=== PATIENT | female | born 1980 | race Caucasian/White ===

== ENCOUNTER 2016-09-06 15:14 | Emergency (ER) | payer MEDICAID ==
[~2016-09-06] VITALS: Ht 160 cm; Wt 65.8 kg
[2016-09-06 15:39] VITALS: BP 119/78
--- NOTE | 2016-09-06 19:12 | NUR ---
PATIENT LEFT WITHOUT BEING SEEN BY DR. SNOW. NO FURTHER CARE PROVIDED FOR PATIENT.
== END 2016-09-06 19:12 | disposition left against medical advice (07) ==
LOC: MED 15:14
DX: R51 Headache (principal); Z53.21 Procedure and treatment not carried out due to patient leaving prior to being seen by health care provider

== ENCOUNTER 2016-09-16 11:36 | Emergency (ER) | payer OTHER ==
[~2016-09-16] VITALS: Ht 160 cm; Wt 65.8 kg
[2016-09-16 11:52] VITALS: BP 115/68
--- NOTE | 2016-09-16 14:36 | NUR ---
Pt w/c assisted to bed 3.
[2016-09-16] MEDS ORDERED: NACL 0.9% 1,000 ML IV ONE (14:55)
[2016-09-16] MEDS ORDERED: ONDANSETRON 4 MG/2 ML VIAL IVP ONE (14:55)
[2016-09-16] MEDS ORDERED: KETOROLAC 30 MG/ML VIAL IVP ONE (14:55)
--- NOTE | 2016-09-16 14:58 | NUR ---
Patient being evaluated by physician at bedside.
--- NOTE | 2016-09-16 15:00 | NUR ---
PATIENT PRESENTS TO ED WITH FRONTAL LOBE HEADACHE SINCE 4AM . PT STATES .SKIN IS PINK/WARM/DRY; AAOX4 WITH EVEN AND STEADY GAIT; LUNGS CLEAR BL; HR EVEN AND REGULAR; PT DENIES ANY FEVER, CP, SOB, OR COUGH AT THIS TIME; PATIENT STATES PAIN OF 9/10 AT THIS TIME; VSS; PATIENT POSITIONED FOR COMFORT; HOB ELEVATED; BEDRAILS UP X2; BED DOWN. ER MD MADE AWARE OF PT STATUS.
[2016-09-16] MEDS ORDERED: diphenhydrAMINE 50 MG/ML VIAL IVP ONE (15:05)
[2016-09-16] MEDS ORDERED: PROCHLORPERAZINE 10 MG/2 ML VIAL IVP ONE (15:05)
[2016-09-16 15:23] LABS: BASOPHILS # (AUTO) 0.2 K/uL (0.00-0.22); EOSINOPHILS # (AUTO) 0.1 K/uL (0-0.4); EOSINOPHILS % (AUTO) 1.8 % (0.0-4.0); HEMATOCRIT 34.7 % (36-48); HEMOGLOBIN 10.8 g/dL (12.0-16.0); LYMPHOCYTES # (AUTO) 1.1 K/uL (2.5-16.5); LYMPHOCYTES % (AUTO) 18.6 % (20.5-51.1); MEAN CORPUSCULAR HEMOGLOBIN 23 pg (27-31); MEAN CORPUSCULAR HGB CONC 31 g/dL (33-37); MEAN CORPUSCULAR VOLUME 73 fL (80-94); MONOCYTES # (AUTO) 0.3 K/uL (0.8-1.0); MONOCYTES % (AUTO) 4.9 % (1.7-9.3); NEUTROPHILS # (AUTO) 4.5 K/uL (1.8-7.7); PLATELET COUNT (AUTO) 201 K/uL (140-450); RED BLOOD CELL COUNT(AUTO) 4.76 MIL/uL (4.20-5.40); RED CELL DISTRIBUTION WIDTH 16.8 % (11.6-13.7); WHITE BLOOD COUNT (AUTO) 6.2 K/uL (4.8-10.8)
[2016-09-16 15:32] LABS: ANION GAP 11.7 (8-16); CALCIUM 8.3 mg/dL (8.5-10.1); CREATININE 0.6 mg/dL (0.6-1.3); POTASSIUM 3.7 mmol/L (3.5-5.1)
[2016-09-16 15:38] LABS: ALBUMIN 3.6 g/dL (3.4-5.0); TOTAL BILIRUBIN 0.9 mg/dL (0.0-1.0)
[2016-09-16 16:21] VITALS: BP 122/77
--- NOTE | 2016-09-16 16:21 | NUR ---
Patient discharged with v/s stable. Written and verbal after care instructions given and explained. Patient alert, oriented and verbalized understanding of instructions. Ambulatory with steady gait. All questions addressed prior to discharge. ID band removed. Patient advised to follow up with PMD. Rx of COMPAZINE/BENADRYL given. Patient educated on indication of medication including possible reaction and side effects. Opportunity to ask questions provided and answered.
== END 2016-09-16 16:21 | disposition home or self-care (01) ==
LOC: MED 11:36
DX: G43.909 Migraine, unspecified, not intractable, without status migrainosus (principal); Z88.6 Allergy status to analgesic agent
CPT/HCPCS: 36415; 80053; 81025; 85025; 96361; 96374; 96375; 99284; J0780; J1200; J1885; J2405; J7030; 81002

== ENCOUNTER 2017-09-07 22:10 | Emergency (ER) | payer OTHER ==
[~2017-09-07] VITALS: Ht 160 cm; Wt 70.3 kg
[2017-09-07 22:16] VITALS: BP 129/89
--- NOTE | 2017-09-07 22:22 | NUR ---
EKG NSR, PT SENT TO LOBBY AWATING ROOM PLACEMENT.
--- NOTE | 2017-09-07 23:40 | NUR ---
PATIENT LEFT WITHOUT BEING SEEN BY DR. Lange. NO FURTHER CARE PROVIDED FOR PATIENT.
== END 2017-09-07 23:40 | disposition left against medical advice (07) ==
LOC: MED 22:10
DX: R07.89 Other chest pain (principal); Z53.21 Procedure and treatment not carried out due to patient leaving prior to being seen by health care provider; Z88.8 Allergy status to other drugs, medicaments and biological substances
CPT/HCPCS: 93005; 99281; 99283; 99284

== ENCOUNTER 2018-02-03 12:49 | Inpatient (IN) | payer OTHER ==
[~2018-02-03] VITALS: Ht 160 cm; Wt 70.3 kg
--- NOTE | 2018-02-03 | NUR ---
RECEIVED REPORT FROM DAY SHIFT RN, FOR CONTINUITY OF CARE.PT IS A/OX4, ON ROOM AIR AND PRIMARILY USES BRUNEIAN. PT IS ABLE TO MAKE NEEDS KNOWN, ABLE TO FOLLOW COMMANDS. PT BREATHS EQUAL AND UNLABORED. PT IS ABLE TO AMBULATE WITH STEADY GAIT AND SKIN IS INTACT. PT HAS A 22G IV TO LEFT HAND, ASYMPTOMATIC AND INTACT. DISCUSSED PLAN OF CARE WITH PT, PT VERBALIZED UNDERSTANDING. VITAL SIGNS WITHIN NORMAL LIMITS. PT STABLE, NO SIGNS OF DISTRESS NOTED AT THIS TIME. BED IN LOWEST POSITION, BED ALARM ON. CALL LIGHT WITHIN REACH, WILL CONTINUE TO MONITOR. Addendum: 02/04/18 at 0642 by Cecilia Suarez RN DISREGARD
--- NOTE | 2018-02-03 12:57 | NUR ---
PATIENT WHEELCHAIR ASSITED TO BED 7.
[2018-02-03 13:02] VITALS: BP 121/66
--- NOTE | 2018-02-03 13:03 | NUR ---
PT. BIB AND WHEELCHAIR ASSISTED TO BED DUE TO INTERMITTENT EPIGASTRIC PAIN AND FEELING WEAK WITH PAIN. 10/10 NON RADIAITNG SHARP EPIGASTRIC PAIN X LAST NIGHT AFTER PER PATIENT EATING A "TORTA". PT. VOMITED ONCE AND IS NAUSEOUS AT THIS TIME. RR EVEN AND UNLABORED. ABD ROUND AND SOFT TO PALPATION. ACTIVE X 4 QUADS. PT STATES " I FEEL LIKE I AM GOING TO PASS OUT WHEN THE PAIN COMES ON. DENIES ANY FEVER. C/O CHILLS AND BEING COLD. PT ABLE TO SPEAK IN FULL AND COMPLETE SENTECES. WILL CONTINUE TO MONITOR. ER MD MADE AWARE. SAFETY PRECAUTIONS. IMPLEMENTED.
[2018-02-03] MEDS ORDERED: ONDANSETRON 4 MG/2 ML VIAL IVP ONE (14:20)
[2018-02-03] MEDS ORDERED: NACL 0.9% 1,000 ML IV ONE (14:20)
[2018-02-03] MEDS ORDERED: HYDROmorphone PFS 2 MG/ML SYR IVP ONE (14:20)
[2018-02-03] MEDS ORDERED: NACL 0.9% 1,000 ML IV SCH ×2 (14:20→17:45)
[2018-02-03] MEDS ORDERED: KETOROLAC 30 MG/ML VIAL IVP ONE (14:20)
[2018-02-03] MEDS ORDERED: diphenhydrAMINE 50 MG/ML VIAL IVP ONE (14:20)
--- NOTE | 2018-02-03 14:42 | NUR ---
RETURNED FROM RADIOLOGY VIA WHEELCHAIR
[2018-02-03 14:54] LABS: APPEARANCE,URINE CLEAR (CLEAR); BLOOD, URINE NEGATIVE (NEGATIVE); COLOR,URINE YELLOW (YELLOW); PH,URINE 8.5 (5.0-9.0); UGLUCOSE NEGATIVE (NEGATIVE)
[2018-02-03 14:55] LABS: BILIRUBIN,URINE NEGATIVE (NEGATIVE); LEUKOCYTE ESTERASE ,URINE NEGATIVE (NEGATIVE); NITRITE, URINE NEGATIVE (NEGATIVE)
[2018-02-03 14:58] LABS: EOSINOPHILS # (AUTO) 0.3 K/uL (0-0.4); HEMATOCRIT 45.9 % (36-48); HEMOGLOBIN 15.1 g/dL (12.0-16.0); LYMPHOCYTES # (AUTO) 0.4 K/uL (2.5-16.5); MEAN CORPUSCULAR HEMOGLOBIN 29 pg (27-31); MEAN CORPUSCULAR HGB CONC 33 g/dL (33-37); MEAN CORPUSCULAR VOLUME 87.8 fL (80-94); MONOCYTES # (AUTO) 0.4 K/uL (0.8-1.0); MONOCYTES % (AUTO) 4.5 % (1.7-9.3); NEUTROPHILS # (AUTO) 7.5 K/uL (1.8-7.7); NEUTROPHILS % (AUTO) 86.5 % (42.2-75.2); PLATELET COUNT (AUTO) 144 K/uL (140-450); RED BLOOD CELL COUNT(AUTO) 5.23 MIL/uL (4.20-5.40); WHITE BLOOD COUNT (AUTO) 8.7 K/uL (4.8-10.8)
[2018-02-03 15:08] LABS: BARBITURATE, URINE NEG. ng/ml (NEG <=200); BENZODIAZEPINE, URINE NEG. ng/mL (NEG <=200); CANNABINOID, URINE NEG. ng/mL (NEG <=50); COCAINE, URINE NEG. ng/mL (NEG <=300); OPIATE, URINE NEG. ng/mL (NEG <=2000); PHENCYCLIDINE SCREEN,URINE NEG. ng/mL (NEG <=25)
[2018-02-03 15:10] LABS: ANION GAP 12.7 (8-16); CARBON DIOXIDE 26.4 mmol/L (21-32); CREATININE 0.6 mg/dL (0.6-1.3); POTASSIUM 4.1 mmol/L (3.5-5.1)
[2018-02-03 15:15] LABS: ALBUMIN 3.9 g/dL (3.4-5.0); TOTAL BILIRUBIN 1.4 mg/dL (0.0-1.0)
--- NOTE | 2018-02-03 15:24 | NUR ---
PT. RESTING COMFORTABLY IN BED, RR EVEN AND UNLABORED. VSS. WILL CONTINUE TO MONITOR.
--- NOTE | 2018-02-03 16:30 | NUR ---
PT. RESTING COMFORTABLY IN BED, RR EVEN AND UNLABORED. WILL CONTINUE TO MONITOR.
[2018-02-03] MEDS ORDERED: metroNIDAZOLE 500 MG/NS PREMIX 100 ML IV ONE (17:25)
[2018-02-03] MEDS ORDERED: LEVOFLOXACIN 500 MG/D5W PREMIX 100 ML IV ONE (17:25)
--- NOTE | 2018-02-03 18:47 | NUR ---
PT. IN BED. VSS. BED IN LOWEST POSITION. VSS. WILL CONTINUE TO MONITOR. AT BEDSIDE.
--- NOTE | 2018-02-03 19:19 | NUR ---
Pt report given to DIMITRI ROBERTSON . Transfer of care at this time.
--- NOTE | 2018-02-03 19:30 | NUR ---
med surg gave medication antibiotic on floor, joey. WAS NOT ABLE TO GIVE MED IN ER. ER md made aware of status.
--- NOTE | 2018-02-03 19:30 | NUR ---
Patient will be admitted to care of Dr. Albarado. Admited to med surg. Will go to room 120b. Belongings list completed. Report to gareth whyte.
--- NOTE | 2018-02-03 19:30 | NUR ---
Pt report given to Lashell whyte. Transfer of care at this time. vitals stable
--- NOTE | 2018-02-03 19:38 | NUR ---
RECEIVED REPORT FROM HERB DIGGER, FOR CONTINUITY OF CARE.PT IS A/OX4, ON ROOM AIR AND PRIMARILY USES SERBIAN. PT IS ABLE TO MAKE NEEDS KNOWN, ABLE TO FOLLOW COMMANDS. PT BREATHS EQUAL AND UNLABORED. PT IS ABLE TO AMBULATE WITH STEADY GAIT AND SKIN IS INTACT. PT HAS A 22G IV TO LEFT HAND, ASYMPTOMATIC AND INTACT. DISCUSSED PLAN OF CARE WITH PT, PT VERBALIZED UNDERSTANDING. VITAL SIGNS WITHIN NORMAL LIMITS. PT STABLE, NO SIGNS OF DISTRESS NOTED AT THIS TIME. BED IN LOWEST POSITION, BED ALARM ON. CALL LIGHT WITHIN REACH, WILL CONTINUE TO MONITOR.
[2018-02-03 21:00] VITALS: BP 113/69
[2018-02-03] MEDS ORDERED: LEVOFLOXACIN 500 MG/D5W PREMIX 100 ML IV SCH (21:30)
--- NOTE | 2018-02-04 | NUR ---
PATIENT STATED SHES ALLERGIC TO MILK PRODUCTS AND IS LACTOSE INTOLERANT.
--- NOTE | 2018-02-04 | NUR ---
VITAL SIGNS WITHIN NORMAL LIMITS. PT STABLE, NO SIGNS OF DISTRESS NOTED AT THIS TIME. BED IN LOWEST POSITION, BED ALARM ON. CALL LIGHT WITHIN REACH, WILL CONTINUE TO MONITOR.
[2018-02-04] MEDS ORDERED: ONDANSETRON 4 MG/2 ML VIAL IVP PRN (02:25)
[2018-02-04] MEDS: MORPHINE SULFATE 2 MG/ML SYR IVP PRN ×2 (03:28→10:07)
[2018-02-04] MEDS: NACL 0.9% 1,000 ML IV SCH ×3 (03:30→22:25)
--- NOTE | 2018-02-04 03:31 | NUR ---
STARTED NEW IV AND GAVE MORPHINE FOR PAIN ORDERED BY DR WU. PT TOLERATED WELL.
[2018-02-04 07:10] LABS: BASOPHILS % (AUTO) 0.3 % (0.0-2.0); EOSINOPHILS # (AUTO) 0.3 K/uL (0-0.4); EOSINOPHILS % (AUTO) 7.2 % (0.0-4.0); HEMATOCRIT 38.5 % (36-48); HEMOGLOBIN 12.6 g/dL (12.0-16.0); LYMPHOCYTES # (AUTO) 0.8 K/uL (2.5-16.5); LYMPHOCYTES % (AUTO) 16.8 % (20.5-51.1); MEAN CORPUSCULAR HEMOGLOBIN 29 pg (27-31); MEAN CORPUSCULAR HGB CONC 33 g/dL (33-37); MEAN CORPUSCULAR VOLUME 89.3 fL (80-94); MONOCYTES # (AUTO) 0.4 K/uL (0.8-1.0); MONOCYTES % (AUTO) 8.6 % (1.7-9.3); NEUTROPHILS # (AUTO) 3.2 K/uL (1.8-7.7); NEUTROPHILS % (AUTO) 67.1 % (42.2-75.2); PLATELET COUNT (AUTO) 119 K/uL (140-450); RED BLOOD CELL COUNT(AUTO) 4.31 MIL/uL (4.20-5.40); RED CELL DISTRIBUTION WIDTH 15.6 % (11.6-13.7); WHITE BLOOD COUNT (AUTO) 4.7 K/uL (4.8-10.8)
--- NOTE | 2018-02-04 07:35 | NUR ---
ENDORSED PT TO DAY SHIFT RN FERMIN FOR CONTINUITY OF CARE. PT IN STABLE CONDITION.
--- NOTE | 2018-02-04 07:36 | NUR ---
RECEIVED REPORT FROM PM NURSE AT BEDSIDE. PT HAS LFT FA 22G IV ACCESS, IVF INFUSING WELL @100 ML/HR. PT SLEEPING AT THIS TIME. PLACED CALL LIGHT NEAR PT. INFORMED HER TO USE CALL LIGHT FOR ANY HELP. WILL CONTINUE TO MONITOR PT.
[2018-02-04 08:31] VITALS: BP 94/57
--- NOTE | 2018-02-04 08:43 | NUR ---
PATIENT HAS BEEN SCREENED AND CATEGORIZED MODERATE NUTRITION RISK. PATIENT WILL BE SEEN WITHIN 3-5 DAYS OF ADMISSION. 02/06/18 02/08/[address]
[2018-02-04] MEDS ORDERED: IMI50 PO (09:41)
[2018-02-04] MEDS ORDERED: IBUP-2218 PO (09:41)
--- NOTE | 2018-02-04 10:10 | NUR ---
PT COMPLAINING OF JAMIL. ADMINISTERED PAIN MEDS ORDERED. PT HAS HOME MEDS , DID MED REC AND PROVIDED MEDS TO PHARMACY. WAITING MD TO VERIFY MEDS . PT PROVIDED WITH ICE PACK, WENT BACK TO SLEEP. PLACED CALL LIGHT WITHIN PT REACH. INFORMED HER TO USE CALL LIGHT FOR ANY HELP. WILL CONTINUE TO MONITOR PT.
--- NOTE | 2018-02-04 12:30 | NUR ---
CHECKED ON PT. SLEEPING ON HER BED. MEDICATED WITH MORPHINE , STATES HER PAIN HAS BEEN REDUCED. NO SIGN OF DISTRESS. STILL COMPLAINS OF JAMIL. WILL CONTINUE TO MONITOR PT. FAMILY AT BEDSIDE.
[2018-02-04] MEDS ORDERED: SUMAtriptan 50 MG TAB PO PRN (13:10)
[2018-02-04] MEDS ORDERED: IBUPROFEN 800 MG PO PRN (13:10)
[2018-02-04] MEDS ORDERED: IBUPROFEN 800 MG TAB PO PRN (13:35)
[2018-02-04 16:00] VITALS: BP 101/59
--- NOTE | 2018-02-04 16:51 | NUR ---
ADMINISTERED ZOFRAN TO PT , C/O NAUSEA. PT STATES THAT WHEN HE CLOSES EYE TO SLEEP, FEEL BETTER BUT IT HEAD STARTS HURTING ONCE PT IS UP . RAISED HOB, PLACED CALL LIGHT WITHIN PT REACH. INFORMED HER TO USE CALL LIGHT FOR ANY HELP. VERBALIZED UNDERSTANDING. WILL CONTINUE TO MONITOR PT.
--- NOTE | 2018-02-04 19:15 | NUR ---
ENDORSED PT TO PM NURSE AT BEDSIDE. PT IN STABLE CONDITION.
--- NOTE | 2018-02-04 19:15 | NUR ---
RECEIVED BEDSIDE REPORT FROM RN LACIE, PATIENT IN BED NO SIGNS DISTRESS, IV IN RIGHT WRIST 22 G, INFUSING NS AT 100 ML/HR. PATIENT ALERT AND ABLE TO MAKE NEEDS KNOWN, FAMILY AT BEDSIDE, DENIES PAIN AT THIS TIME, EXPLAINED PLAN OF CARE, UPDATED BOARD WILL CONTINUE TO MONITOR.
--- NOTE | 2018-02-04 20:00 | NUR ---
PATIENT IN BED, SLEEPING, WILL CONTINUE TO MONITOR.
--- NOTE | 2018-02-04 23:40 | NUR ---
SPOKE WITH DR PERRY. PATIENT OKAY TO DC TOMORROW LONG CONTINUES TO BE STABLE.
[2018-02-04] MEDS ORDERED: ACETAMINOPHEN EXTRA STRENGTH 500 MG TAB PO PRN (23:45)
[2018-02-05] VITALS: BP 115/72
--- NOTE | 2018-02-05 | NUR ---
V/S TAKEN ALL WITHIN BASELINE, DENIES PAIN, CALL LIGHT WITHIN REACH.
--- NOTE | 2018-02-05 03:11 | NUR ---
SLEEPING IN BED NO SIGNS OF PAIN, CALL LIGHT WITHIN REACH.
--- NOTE | 2018-02-05 06:33 | NUR ---
DUE MEDICATIONS GIVEN PT TOLERATED WELL
--- NOTE | 2018-02-05 07:05 | NUR ---
ENDORSED PATIENT TO DAY SHIFT NURSE PATIENT STABLE AT THIS TIME.
--- NOTE | 2018-02-05 07:06 | NUR ---
RECEIVED REPORT FROM P NURSE AT BEDSIDE. PT LYING ON HER BED. PER PM NURSE, DR PERRY SAW PT LAST NIGHT. OKAY TO BE DC HOME. PT CAN FOLLOW UP OUTPATIENT. PT HAS BEEN PROVIDED WITH INFO, IN CHART. INFORMED PT THAT WILL WORK ON HER DC PAPER SOON ORDER ARE AVAILABLE. VERBALIZED UNDERSTANDING. NO SIGN OF DISTRESS NOTED. WILL CONTINUE TO MONITOR PT.
[2018-02-05] MEDS ORDERED: PANTOPRAZOLE 40 MG TABEC PO SCH (07:30)
[2018-02-05 07:48] VITALS: BP 99/58
--- NOTE | 2018-02-05 09:51 | NUR ---
CHECKED ON PT. INFORMED HER THAT WAITING O MD FOR DC ORDER. PT LYING ON HER BED COMFORTABLY. NO SIGN OF DIATRESS NOTED. WILL CONTINUE TO MONITOR PT.
--- NOTE | 2018-02-05 12:00 | NUR ---
PT FAMILY AT BEDSIDE. ASKING FOR DC TIME. INFORMED PT AND FAMILY MEMBER THAT PT WILL BE SEEN BY DR CRABTREE BEFORE SHE IS DISCHARGE. PT EDUCATED ON APPENDICITIS AND POSSIBLE CAUSES. INFORMED PT THAT STABLE AT THIS TIME, ADVISED THEM TO TALK THEIR CONCERN TO MD RELATED TO THE DISEASE PROCESS WHILE PT IS SEEN BY MD. VERBALIZED UNDERSTANDING. WILL CONTINUE TO MONITOR PT.
[2018-02-05] MEDS ORDERED: PANT40EC PO (14:04)
--- NOTE | 2018-02-05 15:55 | NUR ---
PT DISCHARGED HOME . PT FAMILY AT BEDSIDE. GAVE HER DC INSTRUCTION WITH PACKET . PT GIVE PRESCRIPTION FOR PANTOPRAZOLE FOR 21 DAYS. ALSO INFORMED THAT SHE NEEDS TO FOLLOW UP WITH GI PHYSICIAN AND GENERAL SURGEON FOR MANAGING HER JAMIL DUE TO MIGRAINE. VERBALIZED UNDERSTANDING. PT GIVEN VISITING CARD WITH DR PERRY OFFICE CONTACT. PT STABLE AND WENT HOME WITH ALL BELONGINGS.
== END 2018-02-05 16:00 | disposition home or self-care (01) | DRG 241 ==
LOC: MED 12:49 → MTU 19:20
PROVIDERS: ADMIT Hospitalist; ATTEND Hospitalist
DX: K29.70 Gastritis, unspecified, without bleeding (principal); G43.909 Migraine, unspecified, not intractable, without status migrainosus; T39.395A Adverse effect of other nonsteroidal anti-inflammatory drugs [NSAID], initial encounter; Z88.8 Allergy status to other drugs, medicaments and biological substances; Y92.89 Other specified places as the place of occurrence of the external cause
CPT/HCPCS: 36415; 76705; 80053; 80305; 81003; 82150; 83605; 83690; 84703; 85025; 87040; 87086; 96361; 96365; 96375; 99285; C1758; J1170; J1200; J1885; J1956; J2270; J2405; J3490; J7030; Q0092

== ENCOUNTER 2018-04-19 15:13 | Emergency (ER) | payer OTHER ==
[~2018-04-19] VITALS: Ht 160 cm; Wt 68.0 kg
[~2018-04-19 15:13] MED LIST: IMI50 PO; PANT40EC PO
[2018-04-19 15:17] VITALS: BP 115/83
--- NOTE | 2018-04-19 15:24 | NUR ---
PATIENT AMBULATED TO BED 10.
--- NOTE | 2018-04-19 15:29 | NUR ---
PATIENT PRESENTS TO ED WITH C/O HEADACHE X4 DAYS. PT STATES HER VISION BECAME BLURRY TODAY. "I DON'T SEE IMAGES JUST COLORS." PT HAS STEADY GAIT. AAOX4, PERRLA. TOOK IBUPROFEN TODAY. DENIES N/V/D; SKIN IS PINK/WARM/DRY; LUNGS CLEAR BL; HR EVEN AND REGULAR; PT DENIES ANY FEVER, CP, SOB, OR COUGH AT THIS TIME; PATIENT STATES HEADACHE 10/10 AT THIS TIME; VSS; PATIENT POSITIONED FOR COMFORT; HOB ELEVATED; BEDRAILS UP X2; BED DOWN. ER MD MADE AWARE OF PT STATUS.
--- NOTE | 2018-04-19 15:47 | NUR ---
Patient being evaluated by physician at bedside.
[2018-04-19] MEDS ORDERED: DEXAMETHASONE 10 MG/ML VIAL IM ONE (16:00)
[2018-04-19] MEDS ORDERED: MORPHINE SULFATE 4 MG/ML SYR IM ONE (16:00)
[2018-04-19] MEDS ORDERED: KETOROLAC 60 MG/2 ML VIAL IM ONE (16:00)
--- NOTE | 2018-04-19 16:21 | NUR ---
PT TAKEN TO CT AT THIS TIME
[2018-04-19 16:50] LABS: BILIRUBIN,URINE NEGATIVE (NEGATIVE); BLOOD, URINE 3+ (NEGATIVE); LEUKOCYTE ESTERASE ,URINE 2+ (NEGATIVE); NITRITE, URINE POSITIVE (NEGATIVE); UGLUCOSE NEGATIVE (NEGATIVE)
[2018-04-19 16:51] LABS: APPEARANCE,URINE CLOUDY (CLEAR)
[2018-04-19 16:52] LABS: COLOR,URINE BLOODY (YELLOW)
[2018-04-19 16:55] LABS: RBC,URINE TOO NUMEROUS TO COUN /HPF (0-5)
[2018-04-19 16:56] LABS: WBC,URINE TOO MANY TO COUNT /HPF (0-5)
[2018-04-19] MEDS ORDERED: LEVOFLOXACIN 500 MG TAB PO ONE (17:15)
[2018-04-19 18:48] VITALS: BP 112/82
--- NOTE | 2018-04-19 18:48 | NUR ---
Patient discharged with v/s stable. Written and verbal after care instructions given and explained. Patient alert, oriented and verbalized understanding of instructions. Ambulatory with steady gait. All questions addressed prior to discharge. ID band removed. Patient advised to follow up with PMD. Rx of BACTRIM, FIORICET given. Patient educated on indication of medication including possible reaction and side effects. Opportunity to ask questions provided and answered.
[2018-04-19 21:29] LABS: BARBITURATE, URINE NEG. ng/ml (NEG <=200); BENZODIAZEPINE, URINE NEG. ng/mL (NEG <=200); CANNABINOID, URINE NEG. ng/mL (NEG <=50); COCAINE, URINE NEG. ng/mL (NEG <=300); OPIATE, URINE NEG. ng/mL (NEG <=2000); PHENCYCLIDINE SCREEN,URINE NEG. ng/mL (NEG <=25)
== END 2018-04-19 18:48 | disposition home or self-care (01) ==
LOC: MED 15:13
DX: G43.109 Migraine with aura, not intractable, without status migrainosus (principal); H53.8 Other visual disturbances; N39.0 Urinary tract infection, site not specified; Z79.899 Other long term (current) drug therapy; Z88.8 Allergy status to other drugs, medicaments and biological substances; Z91.018 Allergy to other foods
CPT/HCPCS: 70450; 80305; 81001; 81025; 87086; 96372; 99284; J2270; J1100; J1885

== ENCOUNTER 2018-05-03 21:57 | Emergency (ER) | payer OTHER ==
[~2018-05-03] VITALS: Ht 160 cm; Wt 70.3 kg
[2018-05-03 22:10] VITALS: BP 150/80
[2018-05-03 22:13] VITALS: BP 150/80
[2018-05-03] MEDS ORDERED: ACETAMINOPHEN EXTRA STRENGTH 500 MG TAB PO ONE (22:15)
--- NOTE | 2018-05-03 22:15 | NUR ---
TO LOBBY A/W BED, AMB, VSS, MEDICATED PER PROTOCOL TOLERATED WELL.
--- NOTE | 2018-05-03 22:39 | NUR ---
PT TAKEN TO BED 10
--- NOTE | 2018-05-03 23:01 | NUR ---
C/O R GREATER THAN L BLE PAIN
--- NOTE | 2018-05-03 23:01 | NUR ---
37/F PRESENTS TO ED, C/O 01/14 BURNING AND PRESSURE-LIKE R FLANK PAIN, X4 DAYS. PT REPORTS HEADACHE, SUBJECTIVE FEVER, CHILLS, NAUSEA. PT STATED THAT SHE WENT TO ER 2 WEEKS AGO, WAS TOLD SHE HAD A BLADDER INFECTION, WAS GIVEN RX BACTRIM BUT STOPPED TAKING IT. PT AOX4, GCS 15, AMBULATORY, RR EVEN AND UNLABORED, CRYING IN PAIN AT THIS TIME. HX MIGRAINES, RECENT UTI RX BACTRIM (DID NOT FINISH)
--- NOTE | 2018-05-03 23:09 | NUR ---
Dr. Michele evaluating patient at bedside.
[2018-05-03] MEDS ORDERED: NACL 0.9% 500 ML IV ONE (23:14)
[2018-05-03] MEDS ORDERED: KETOROLAC 30 MG/ML VIAL IVP ONE (23:15)
[2018-05-03] MEDS ORDERED: ONDANSETRON 4 MG/2 ML VIAL IVP ONE (23:15)
--- NOTE | 2018-05-03 23:21 | NUR ---
PT TAKEN TO CT
--- NOTE | 2018-05-03 23:29 | NUR ---
PT RETURN FROM CT
--- NOTE | 2018-05-04 00:25 | NUR ---
ER AT BEDSIDE
--- NOTE | 2018-05-04 00:38 | NUR ---
Patient discharged with v/s stable. Written and verbal after care instructions given and explained. Patient alert, oriented and verbalized understanding of instructions. Ambulatory with steady gait. All questions addressed prior to discharge. ID band removed. Patient advised to follow up with PMD. Rx of ROBAXIN, MOTRIN given. Patient educated on indication of medication including possible reaction and side effects. Opportunity to ask questions provided and answered.
== END 2018-05-04 00:38 | disposition home or self-care (01) ==
LOC: MED 21:57
DX: S39.012A Strain of muscle, fascia and tendon of lower back, initial encounter (principal); N39.0 Urinary tract infection, site not specified; G43.909 Migraine, unspecified, not intractable, without status migrainosus; Z88.1 Allergy status to other antibiotic agents; Z91.018 Allergy to other foods; Z79.899 Other long term (current) drug therapy; X58.XXXA Exposure to other specified factors, initial encounter; Y93.89 Activity, other specified; Y92.89 Other specified places as the place of occurrence of the external cause; Y99.8 Other external cause status
CPT/HCPCS: 74176; 81002; 81025; 96374; 96375; 99284; J1885; J2405; J7030

== ENCOUNTER 2018-07-01 05:17 | Emergency (ER) | payer OTHER ==
[~2018-07-01] VITALS: Ht 162.6 cm; Wt 70.9 kg
[2018-07-01 05:25] VITALS: BP 103/68
--- NOTE | 2018-07-01 05:25 | NUR ---
PT PRESENTS TO ED WITH SUPRAPUBIC TENDERNESS RADIATING TO RECTUM AND RIGHT FLANK X1 HR. 10/10 PAIN. NO CHANGE WITH URINATION. ALSO C/O BLOATING. ABD SOFT AND NON-TENDER WITH BOWEL SOUNDS IN X4 QUADRANTS. A&OX4. AFEBRILE. VSS. POSITIONED IN BED FOR COMFORT. FAMILY AT BEDSIDE. ER MD AWARE. CONTINUE TO MONITOR.
--- NOTE | 2018-07-01 05:25 | NUR ---
PT AMBULATED TO BED 7. PROVIDING URINE.
[2018-07-01] MEDS ORDERED: KETOROLAC 60 MG/2 ML VIAL IM ONE (05:55)
[2018-07-01 06:26] VITALS: BP 103/65
--- NOTE | 2018-07-01 06:27 | NUR ---
Patient discharged with v/s stable. Written and verbal after care instructions given and explained. Patient verbalized understanding. Ambulatory with steady gait. All questions addressed prior to discharge. Advised to follow up with PMD.
== END 2018-07-01 06:27 | disposition home or self-care (01) ==
LOC: MED 05:17
DX: R10.30 Lower abdominal pain, unspecified (principal); G43.909 Migraine, unspecified, not intractable, without status migrainosus; Z79.899 Other long term (current) drug therapy; Z88.8 Allergy status to other drugs, medicaments and biological substances
CPT/HCPCS: 81002; 81025; 96372; 99283; J1885

== ENCOUNTER 2019-01-06 22:45 | Emergency (ER) | payer OTHER ==
[~2019-01-06] VITALS: Ht 160 cm; Wt 65.8 kg
[2019-01-06 23:00] VITALS: BP 131/85
--- NOTE | 2019-01-06 23:00 | NUR ---
PT AMBULATED TO BED WITH FAMILY
--- NOTE | 2019-01-06 23:07 | NUR ---
PT C/O FACIAL AND CHEST RASH S/P EATING SHRIMP COCTAIL AT 1930. RASH + ITCH BEGAN 2099. DENIES DIFFICULTY BREATHING. PT DENIES PAIN. STATES SHE TOOK 800 MG IBURPROFEN AT 1999 FOR HEADACHE. PT STATES SHE HAS NEVER HAD RASH LIKE THIS BEFORE. LMP 12/09/18. RR EVEN AN UNLABORED. PT CALM, IN BED WITH FAMILY AT BEDSIDE. MEDHX: ASTHMA, MIGRAINES ALLERGIES: PHENERGAN
--- NOTE | 2019-01-06 23:10 | NUR ---
DR MOORE AT BEDSIDE.
--- NOTE | 2019-01-06 23:45 | NUR ---
PT RESTING IN BED WITH FAMILY AT BEDSIDE. VSS AT THIS TIME. NO COMPLAINTS AT THIS TIME.
[2019-01-07] MEDS ORDERED: FAMOTIDINE 20 MG TAB PO ONE (00:15)
[2019-01-07] MEDS ORDERED: hydrOXYzine HCL 25 MG TAB PO ONE (00:15)
--- NOTE | 2019-01-07 01:00 | NUR ---
Patient discharged with v/s stable. Written and verbal after care instructions given and explained. Patient alert, oriented and verbalized understanding of instructions. Ambulatory with to home. All questions addressed prior to discharge. ID band removed. Patient advised to follow up with PMD. Rx of PEPCID AND HYDROXYZINE HYDROCHLORIDE given. Patient educated on indication of medication including possible reaction and side effects. Opportunity to ask questions provided and answered. ACCOMPANIED BY AND SON.
[2019-01-07 01:01] VITALS: BP 131/85
== END 2019-01-07 01:01 | disposition home or self-care (01) ==
LOC: MED 22:45
DX: T78.40XA Allergy, unspecified, initial encounter (principal); R21 Rash and other nonspecific skin eruption; G43.909 Migraine, unspecified, not intractable, without status migrainosus; Z79.899 Other long term (current) drug therapy; Z88.8 Allergy status to other drugs, medicaments and biological substances; Z91.018 Allergy to other foods; X58.XXXA Exposure to other specified factors, initial encounter
CPT/HCPCS: 99283